=== PATIENT | male | born 1995 | race Caucasian/White ===

== ENCOUNTER 2017-07-21 22:55 | Emergency (ER) | payer OTHER ==
[2017-07-22] MEDS: TETRACAINE 0.5% 4 ML OPH LEFT EYE (03:14)
[2017-07-22] MEDS: FLUORESCEIN STRIP LEFT EYE (03:14)
[2017-07-22] MEDS: OPHTHALMIC IRRIG SOLUTION 120 ML LEFT EYE (03:28)
[2017-07-22] MEDS: HYDROCODONE/APAP (5/325) TAB PO (03:47)
== END 2017-07-22 03:11 | disposition home or self-care (01) ==
LOC: FTE 22:55
DX: H57.8 Other specified disorders of eye and adnexa (principal)
CPT/HCPCS: 99283; Z7502